=== PATIENT | male | born 1980 ===

== ENCOUNTER 2021-09-02 20:00 | Outpatient (CLI) | payer MEDICAID, SELFPAY | END 2021-09-02 20:01 | disposition home or self-care (01) | LOC: SLEEP 09-03 07:02 | PROVIDERS: Visit Provider Nurse Practitioner Family | DX: R06.83 Snoring (principal); R53.83 Other fatigue; G47.33 Obstructive sleep apnea (adult) (pediatric) | CPT/HCPCS: 95810 ==